=== PATIENT | female | born 1965 | race Caucasian/White ===

== ENCOUNTER → 2021-05-13 15:45 | Outpatient (CLI) | payer OTHER, BC, SELFPAY ==
--- NOTE | ~2021-05-13 | DEXA_ITS ---
Bone Density Report Name: ADRIANA HAMMOND Age: 56 Sex: Female Ethnicity: White Date of : 1965 Indication: postmenopausal; screening for osteoporosis; height loss; prior fracture; Referring Provider: Teresa Weems Study: Bone densitometry was performed. Exam Date: May 13, 2021 Accession number: [id number] Bone Density: Region BMD T-score Z-score Classification AP Spine (L1-L4) 0.938 -1.0 0.3 Normal Femoral Neck (Left) 0.597 -2.3 -1.1 Osteopenia Total Hip (Left) 0.694 -2.0 -1.2 Osteopenia World Health Organization criteria for BMD impression classify patients as: Normal (T-score at or above -1.0), Osteopenia (T-score between -1.0 and -2.5), or Osteoporosis (T-score at or below -2.5). 10-year Fracture Risk(1): Major Osteoporotic Fracture 17% Hip Fracture 3.0% Reported Risk Factors: [place] (), Neck BMD=0.597, BMI=45.2, previous fracture, alcohol use (1) FRAX(R) Version 3.08. Fracture probability calculated for an untreated patient. Fracture probability may be lower if the patient has received treatment. Clinical Information Provided by Patient: Has had a low trauma fracture Has 3 or more alcoholic drinks per day Has used the following medications: Calcium, VIT B 12, Mirena IUD Patient maximum height was 61.7 Menopause Age: 48 No regular weight bearing exercise Does not regularly consume dairy products Drinks caffeinated beverages Onset of menses at age 10 Number of children 2 Missed period for more than 6 months in a row Impression: The patient has low bone mass, based on the Left Femoral Neck T-score. The patient has an estimated ten-year risk of hip fracture of 3% and an estimated ten-year risk of major fracture of 17%, based on the WHO FRAX algorithm. The patient has risk factors, including: excessive alcohol use, previous fracture. Discussion: BONE DENSITY IS LOW AT ONE OR MORE SKELETAL SITES. THE PATIENT'S BMD AND CLINICAL RISK FACTORS CONTRIBUTE TO THIS PATIENT'S INCREASED RISK OF FRACTURE. This patient's lowest T-score is low at one or more skeletal sites. It meets the World Health Organization's (WHO) criteria for ?low bone mass? (T-score between -1.0 and -2.5). The patient's 10-year risk of hip fracture as calculated by FRAX exceeds the threshold where pharmacological therapy is recommended by the National Osteoporosis Foundation (NOF). However, all treatment decisions require clinical judgment and consideration of individual patient factors, including patient preferences, comorbidities, previous drug use, risk factors not captured in the FRAX model (e.g., frailty, falls, vitamin D deficiency, increased bone turnover, interval significant decline in bone density) and possible under or overestimation of fracture risk by FRAX. The patient should follow a healthful lifestyle (good nutrition with adequate calcium and
== END ==
DX: E03.9 Hypothyroidism, unspecified (principal); M85.89 Other specified disorders of bone density and structure, multiple sites
CPT/HCPCS: 77080

== ENCOUNTER 2021-10-12 00:27 | Emergency (ER) | payer OTHER, BC, SELFPAY ==
[2021-10-12] VITALS (8 sets, daily range): BP systolic 100–152; BP diastolic 61–92; PULSE 81–89; RESP 17–33; TEMP 36.5–36.8; O2SAT 96–100
--- NOTE | ~2021-10-12 | XR_ITS ---
EXAMINATION: XR hip RT 2V w AP pelvis INDICATION: Right hip pain TECHNIQUE: AP view of the pelvis and two views of the right hip are obtained. COMPARISON: None available FINDINGS: There are changes of right total hip arthroplasty. There is cranial dislocation of the femo ral component. No fracture is identified. The soft tissues are unremarkable. IMPRESSION: 1. Cranial dislocation of the femoral component of the hip arthroplasty. Reviewed, dictated and finalized at location A.
--- NOTE | ~2021-10-12 | XR_ITS ---
EXAMINATION: XR hip RT 1V INDICATION: Single AP view of the right hip is obtained. TECHNIQUE: Right hip dislocation post reduction COMPARISON: 0057 hours FINDINGS: The right hip dislocation has been reduced. Alignment is normal. There is no fracture. IMPRESSION: 1. Reduced hip dislocation. Reviewed, dictated and finalized at location A. IMPRESSION: 1. Reduced hip dislocation.
--- NOTE | 2021-10-12 01:20 | ED.FALL ---
HPI - Fall General Chief Complaint: Fall <Talisha Berry PA-C - Last Filed: 10/12/21 03:15> Stated Complaint: Fall <VIVI Costello Last Filed: 10/12/21 03:15> Time Seen by Provider: 10/12/21 01:03 <VIVI Costello Last Filed: 10/12/21 03:15> Source: patient <VIVI Costello Last Filed: 10/12/21 03:15> Mode of arrival: EMS <VIVI Costello Last Filed: 10/12/21 03:15> Limitations: no limitations <VIVI Costello Last Filed: 10/12/21 03:15> History of Present Illness HPI Narrative: This is a 56-year-old female that presents to the emergency department for right hip pain after a fall today. Reports she tripped and fell directly onto her right hip. She did not hit her head or lose consciousness. Reports since she has had pain and has not been able to ambulate. Reports history of hip replacement on this side with a doctor at [facility]. Denies vomiting, numbness, or weakness. <VIVI Costello Last Filed: 10/12/21 03:15> Related Data Home Medications: Home Medications Medication Instructions Recorded Confirmed calcium carbonate 600 mg-vitamin 1 tablet PO BID 09/08/19 09/22/21 D3 20 mcg (800 unit) tablet mecobalamin (vitamin B12) 5,000 mcg PO 09/08/19 09/22/21 mcg disintegrating tablet multivit with 1 tablet PO DAILY 09/08/19 09/22/21 zpauajxv-pifp-MA-lutein 8 mg iron-400 mcg-300 mcg tablet (Multivitamin Women 50 Plus) omega 5-ign-ypf-fish oil 900 cap PO 09/08/19 09/22/21 mg-1,400 mg capsule,delayed release (Fish Oil) soft lens rinse,store solution #360 mL 09/08/19 09/22/21 <VIVI Costello Last Filed: 10/12/21 03:15> Allergies/Adverse Reactions: Allergies Allergy/AdvReac Type Severity Reaction Status Date / Time cefuroxime Allergy Intermediate Unknown Verified 10/12/21 00:39 codeine Allergy Unknown Nausea Verified 10/12/21 00:39 hydrocodone Allergy Unknown Itching Verified 10/12/21 00:39 ibuprofen Allergy Unknown Unknown Verified 10/12/21 00:39 tetracycline Allergy Unknown Unknown Verified 10/12/21 00:39 <Talisha Berry PA-C - Last Filed: 10/12/21 03:15> Review of Systems Review of Systems: CONSTITUTIONAL: Denies fever EYES: Denies visual changes GASTROINTESTINAL: Denies vomiting MUSCULOSKELETAL: Reports joint pain, and myalgia. NEUROLOGIC: Denies numbness, or weakness. <Talisha Berry PA-C - Last Filed: 10/12/21 03:15> All systems reviewed & are unremarkable except as noted in HPI and below <Talisha Berry PA-C - Last Filed: 10/12/21 03:15> [facility] Past Medical History Medical History: Medical History (Updated 10/12/21 @ 02:58 by Talisha Berry PA-C) Alcohol abuse B12 deficiency Depression Essential (primary) hypertension Family history of hyperparathyroidism mother Hyperlipidemia Hypothyroid Insomnia <Talisha Berry PA-C - Last Filed: 10/12/21 03:15> Surgical History Surgical History: Surgical History (Updated 09/22/21 @ 16:00 by Sara Egan NP) History of breast augmentation (~1987) History of cholecystectomy (~05/2016) History of dental surgery (~07/2021) History of gastric bypass (~03/2003) History of hernia repair (~05/2016) History of inguinal hernia repair (~2005) History of repair of rotator cuff (~2004) Right History of right hip replacement (~06/2018) History of sinus surgery (~1997) History of toe surgery (~2015) RT 5th toe History of tonsillectomy (~1966) History of total bilateral knee replacement (TKR) <Talisha Berry PA-C - Last Filed: 10/12/21 03:15> Family History Family History: Family History (Updated 03/24/21 @ 16:55 by Sara Egan NP) Mother Asthma Hyperparathyroidism Grandparent Family history of alcoholism Family history of condition Carcinoma of colon Family history of lung cancer Father Malignant neoplasm of prostate Other Family history of throat cancer <Talisha Berry PA-C -
[2021-10-12 01:38] LABS: Basophils Percent Auto 0.4 % (0.2-1.2); Eosinophils Percent Auto 0.2 % (0-4.4); Hematocrit 41.2 % (37.0-47.0); Hemoglobin 13.8 g/dL (12.0-15.0); Immature Granulocyte Absolute 0.02 K/mm3 (0.00-0.031); Immature Granulocyte Percent A 0.4 % (0-0.5); Lymphocytes Absolute Auto 0.74 K/mm3 (0.9-3.2); Lymphocytes Percent Auto 13.4 % (18.3-44.2); Mean Corpuscular HGB Conc 33.5 g/dl (32-36); Mean Corpuscular Hemoglobin 31.7 pg (26-34); Mean Corpuscular Volume 94.7 fl (80-100); Mean Platelet Volume 9.3 fl (7.4-10.4); Monocytes Absolute Auto 0.2 K/mm3 (0.1-0.6); Neutrophils Absolute Auto 4.5 K/mm3 (1.3-6.7); Neutrophils Percent Auto 81.6 % (45.5-73.1); Platelet Count Result 233 k/mm3 (150-375); Red Blood Count 4.35 M/mm3 (4.2-5.4); Red Cell Distribution Width 12.9 % (11.5-14.5); White Blood Count 5.5 K/mm3 (4.5-10.0)
[2021-10-12 01:49] LABS: Ethanol 158 mg/dL (<10)
[2021-10-12 01:50] LABS: Alanine Aminotransferase 15 U/L (6-35); Albumin Level 4.5 g/dL (3.5-5.1); Alkaline Phosphatase 96 U/L (38-126); Anion Gap 13 mmol/L (8-16); Aspartate Amino Transferase 27 U/L (14-36); Bilirubin,Total 0.4 mg/dL (0.2-1.3); Blood Urea Nitrogen 10 mg/dL (7-17); Calcium 8.6 mg/dL (8.4-10.2); Carbon Dioxide 23 mmol/L (22-30); Chloride 96 mmol/L (98-107); Creatine Kinase 155 U/L (30-135); Estimated CRCL calculation 72 ml/min; Estimated Glomerular Filt Rate > 60; Glucose 133 mg/dL (65-110); Potassium 3.8 mmol/L (3.4-5.0); Sodium 132 mmol/L (137-145)
[2021-10-12] MEDS: fentaNYL CITRATE INJ (*CRX) 100 MCG/2 ML VIAL (02:09)
[2021-10-12] MEDS: SODIUM CHLORIDE 0.9% IV 1,000 ML 1000 ML (02:10)
--- NOTE | 2021-10-12 02:11 | PC.NURSE ---
EDP at bedside for right hip dislocation sedation. Consent obtained prior to moderate sedation start Propofol 100mg given by Dr. Choudhary 0216
--- NOTE | 2021-10-12 02:15 | PC.NURSE ---
50mg propofol given by Dr. Choudhary
--- NOTE | 2021-10-12 02:19 | PC.NURSE ---
50mg propofol given by Dr. Choudhary after second x-ray complete and hip not in place.
--- NOTE | 2021-10-12 02:20 | PC.NURSE ---
50mg propofol given by Dr. Choudhary.
--- NOTE | 2021-10-12 02:22 | PC.NURSE ---
x-ray compete, confirming that hip is back in correct location
== END 2021-10-12 03:23 | disposition home or self-care (01) ==
PROVIDERS: Physician Assistant; Emergency Provider Emergency Medicine; PCP Family Medicine
DX: T84.020A Dislocation of internal right hip prosthesis, initial encounter (principal); I10 Essential (primary) hypertension; E78.5 Hyperlipidemia, unspecified; E03.9 Hypothyroidism, unspecified; E53.8 Deficiency of other specified B group vitamins; Z98.84 Bariatric surgery status; Z96.641 Presence of right artificial hip joint; Z96.653 Presence of artificial knee joint, bilateral; W01.0XXA Fall on same level from slipping, tripping and stumbling without subsequent striking against object, initial encounter; Y79.2 Prosthetic and other implants, materials and accessory orthopedic devices associated with adverse incidents
CPT/HCPCS: 27266; 36415; 73501; 73502; 80053; 80307; 82550; 85025; 96374; 99285; J2704; J3010; J7030

== ENCOUNTER 2022-11-24 08:05 | Emergency (ER) | payer BC, SELFPAY ==
[2022-11-24] VITALS (12 sets, daily range): BP systolic 90–140; BP diastolic 48–79; PULSE 87–108; RESP 13–22; TEMP 36.7; O2SAT 88–100
--- NOTE | ~2022-11-24 | XR_ITS ---
XR hip RT 1V 11/24/2022 09:54 Indication: Post reduction right hip dislocation Procedure: AP view of the right hip Comparison: 02/24/2022 Findings: There is a right total hip arthroplasty with superior lateral dislocation of the femoral co mponent. No evidence for periprosthetic fracture. Surrounding osseous structures are unremarkable. No soft tissue abnormality. Impression: 1: Stable alignment of dislocated right total hip arthroplasty. Reviewed, dictated and finalized at location L. Impression: 1: Stable alignment of dislocated right total hip arthroplasty.
--- NOTE | ~2022-11-24 | XR_ITS ---
EXAMINATION: XR hip RT 2V w AP pelvis DATE: 11/24/2022 09:01 INDICATION: Right hip dislocation. Fall. TECHNIQUE: An anteroposterior view of the pelvis and 2 views of right hip were obtained. COMPARISON: Right hip radiograph 10/12/2021 FINDINGS: There is a total right hip arthroplasty. There is lateral and proximal dislocation of the f emoral component with respect to the acetabular component. No fracture. No periprosthetic lucency to suggest loosening or infection. Left hip joint space is normal. IMPRESSION: 1. Dislocated total right hip arthroplasty. Reviewed, dictated and finalized at location A.
--- NOTE | ~2022-11-24 | XR_ITS ---
XR hip RT min 2V 11/24/2022 09:58 Indication: Right hip reduction Procedure: 2 views right hip Comparison: 11/24/2022 Findings: Interval reduction of right hip arthroplasty, now in anatomic alignment. Prosthesis well se ated. No underlying fracture. No soft tissue abnormality. Impression: 1: Normal alignment of right total hip arthroplasty post reduction. Reviewed, dictated and finalized at location L. Impression: 1: Normal alignment of right total hip arthroplasty post reduction.
--- NOTE | 2022-11-24 09:20 | ED.GENADULT ---
HPI - General Adult General Chief complaint: Unspecified <Boris Jimenes PA-C - Last Filed: 11/24/22 13:09> Stated complaint: right hip dislocation <Boris Jimenes PA-C - Last Filed: 11/24/22 13:09> Time Seen by Provider: 11/24/22 08:17 <Boris Jimenes PA-C - Last Filed: 11/24/22 13:09> Source: patient <Boris Jimenes PA-C - Last Filed: 11/24/22 13:09> Mode of arrival: EMS <Boris Jimenes PA-C - Last Filed: 11/24/22 13:09> Limitations: no limitations <Boris Jimenes PA-C - Last Filed: 11/24/22 13:09> History of Present Illness HPI narrative: This is a 57-year-old female who presents to the ED with chief complaint of a right hip injury that occurred yesterday evening. That she was trying to clean the bathroom when this happened. Reports that she had 2 different drinks of vodka and lemonade and does not remember anything since. She does not remember the injury. She states she had the drinks around 4:30 in the afternoon. Denies any further site of pain or injury. is with her and reports that he found her on the ground when he was going to bed around midnight. States he was going to call the ambulance but patient did not want this. Reports that she wanted to just lay on the ground. Reports that she woke up around 0630 and they called the ambulance. Patient reports that the right hip was replaced 4 years ago with a doctor at [facility]. Per triage note she was given 8 mg of morphine in route from EMS. <Boris Jimenes PA-C - Last Filed: 11/24/22 13:09> Related Data Home medications: Home Medications Medication Instructions Recorded Confirmed calcium carbonate 600 mg-vitamin 1 tablet PO BID 09/08/19 09/28/22 D3 20 mcg (800 unit) tablet fopigoak-fgah-kift 8 mg-folic 400 1 tablet PO DAILY 09/08/19 09/28/22 mcg-K 50 mcg-lutein 300 mcg tablet (Multivitamin Women 50 Plus) soft lens rinse,store solution #360 mL 09/08/19 04/28/22 mecobalamin (vitamin B12) 5,000 mcg PO .QD 03/24/22 09/28/22 mcg disintegrating tablet omega 7-fec-twh-fish oil 900 cap PO .QD 03/24/22 09/28/22 mg-1,400 mg capsule,delayed release (Fish Oil) <Boris Jimenes PA-C - Last Filed: 11/24/22 13:09> Allergies/adverse reactions: Allergies Allergy/AdvReac Type Severity Reaction Status Date / Time cefuroxime Allergy Intermediate Unknown Verified 11/24/22 08:16 hydrocodone Allergy Unknown Itching Verified 11/24/22 08:16 ibuprofen Allergy Unknown Unknown Verified 11/24/22 08:16 tetracycline Allergy Unknown Unknown Verified 11/24/22 08:16 codeine AdvReac Unknown Nausea Verified 11/24/22 09:32 <Boris Jimenes PA-C - Last Filed: 11/24/22 13:09> Review of Systems Review of Systems: All systems as dictated in HPI <Boris Jimenes PA-C - Last Filed: 11/24/22 13:09> [facility] Past Medical History Medical History: Medical History (Updated 11/25/22 @ 00:00 by Coleen rFiend) Alcohol abuse B12 deficiency Depression Essential (primary) hypertension Family history of hyperparathyroidism mother Hyperlipidemia Hypotension Hypothyroid Insomnia <VIVI Corley Last Filed: 11/24/22 13:09> Surgical History Surgical History: Surgical History History of breast augmentation (~1987) History of cholecystectomy (~05/2016) History of dental surgery (~07/2021) History of gastric bypass (~03/2003) History of hernia repair (~05/2016) History of inguinal hernia repair (~2005) History of repair of rotator cuff (~2004) Right History of right hip replacement (~06/2018) History of sinus surgery (~1997) History of toe surgery (~2015) RT 5th toe History of tonsillectomy (~1966) History of total bilateral knee replacement (TKR) <VIVI Corley Last Filed: 11/24/22 13:09> Family History Family History: Family History (Updated 09/28/22 @ 16:05 by Leila Bonner) Mother Asthma Hyperparathyroidism Suzanne
[2022-11-24] MEDS: SODIUM CHLORIDE 0.9% IV 1,000 ML 1000 ML (09:40)
--- NOTE | 2022-11-24 11:04 | PC.NURSE ---
0941: 100mg propofol administered by EDP 0942: 50mg propofol administered by EDP 0950: 100 mg propofol administered by EDP Dr. Bradley 0952: 50mg propofol administered by EDP
== END 2022-11-24 12:00 | disposition home or self-care (01) ==
PROVIDERS: Emergency Provider Physician Assistant; PCP Nurse Practitioner Family
DX: T84.020A Dislocation of internal right hip prosthesis, initial encounter (principal); F32.A Depression, unspecified; I10 Essential (primary) hypertension; E03.9 Hypothyroidism, unspecified; X58.XXXA Exposure to other specified factors, initial encounter
CPT/HCPCS: 27265; 73501; 73502; 99285; J2704; J7030

== ENCOUNTER 2023-03-31 09:48 | Emergency (ER) | payer BC, SELFPAY ==
[2023-03-31] VITALS (9 sets, daily range): BP systolic 94–132; BP diastolic 52–82; PULSE 72–93; RESP 13–18; TEMP 36.7–36.9; O2SAT 94–100
--- NOTE | ~2023-03-31 | XR_ITS ---
EXAMINATION: XR hip RT 1V DATE: 03/31/2023 11:06 INDICATION: Right hip dislocation status post reduction. TECHNIQUE: A single view of right hip was obtained. COMPARISON: Radiographs at 10:03 AM FINDINGS: There is a total right hip arthroplasty in near-anatomic alignment. No periprosthetic lucen cy to suggest loosening or infection. No fracture. IMPRESSION: 1. Total right hip arthroplasty in near-anatomic alignment. Reviewed, dictated and finalized at location A. DESIGNER
--- NOTE | ~2023-03-31 | XR_ITS ---
EXAMINATION: XR hip RT 2V w AP pelvis DATE: 03/31/2023 10:21 INDICATION: Right hip dislocation. TECHNIQUE: An anteroposterior view of the pelvis and 2 views of right hip were obtained. COMPARISON: Right hip radiographs 11/24/2022 FINDINGS: There is a total right hip arthroplasty. There is lateral and proximal dislocation of the f emoral component with respect to the acetabular component. No fracture. No periprosthetic lucency to suggest loosening or infection. There is mild left hip osteoarthritis. IMPRESSION: 1. Dislocated total right hip arthroplasty. Reviewed, dictated and finalized at location A. BINDER CHIEF
--- NOTE | 2023-03-31 10:04 | PC.NURSE ---
consent signed and in chart
[2023-03-31] MEDS: SODIUM CHLORIDE 0.9% IV 1,000 ML 999 ML IV CONT (10:37)
[2023-03-31] MEDS: PROPOFOL IV EMULSION 200 MG/20 ML VIAL 150 MG IV PUSH (10:49)
--- NOTE | 2023-03-31 10:49 | PC.NURSE ---
150mg Etomidate pushed by EDP Dr Rolon at bedside
--- NOTE | 2023-03-31 10:54 | ED.LOWEXIN ---
HPI - Extremity Injury (Lower) General Chief Complaint: Extremity Injury, Lower Stated Complaint: Dislocated hip Time Seen by Provider: 03/31/23 09:54 History of Present Illness HPI Narrative: Patient is a 57-year-old female who presents ER with concerns for hip dislocation. Reports she had been up drinking vodka and water last night and went to bed. When she woke up this morning her hip hurt her. At some point she is able to get herself to the bathroom but was difficult ambulate. To the pain she decided come to the ER. She reports hip dislocation x2 and she thinks the same things occurring. Her right leg is shortened. She has no numbness or tingling. Denies any other pain or potential injury. Related Data Home Medications Medication Instructions Recorded Confirmed calcium carbonate 600 mg-vitamin 1 tablet PO BID 09/08/19 09/28/22 D3 20 mcg (800 unit) tablet eduquztj-amao-zpmn 8 mg-folic 400 1 tablet PO DAILY 09/08/19 09/28/22 mcg-K 50 mcg-lutein 300 mcg tablet (Multivitamin Women 50 Plus) soft lens rinse,store solution #360 mL 09/08/19 04/28/22 mecobalamin (vitamin B12) 5,000 mcg PO .QD 03/24/22 09/28/22 mcg disintegrating tablet omega 2-ien-rnx-fish oil 900 cap PO .QD 03/24/22 09/28/22 mg-1,400 mg capsule,delayed release (Fish Oil) Allergies Allergy/AdvReac Type Severity Reaction Status Date / Time cefuroxime Allergy Intermediate Unknown Verified 11/24/22 08:16 hydrocodone Allergy Unknown Itching Verified 11/24/22 08:16 ibuprofen Allergy Unknown Unknown Verified 11/24/22 08:16 tetracycline Allergy Unknown Unknown Verified 11/24/22 08:16 codeine AdvReac Unknown Nausea Verified 11/24/22 09:32 Review of Systems Review of Systems: All systems reviewed & are unremarkable except as noted in HPI and below Constitutional: Constitutional: Reports no additional constitutional complaints ENT: Reports system reviewed and no additional complaints, except as documented Cardiovascular: Cardiovascular: Reports no additional cardiovascular complaints Respiratory: Respiratory: Reports no additional respiratory complaints Musculoskeletal: Musculoskeletal: Denies back pain, Reports arthralgias, Denies joint swelling and Denies muscle cramps Neurologic: Reports system reviewed and no additional complaints, except as documented [facility] Past Medical History Medical History (Updated 03/31/23 @ 10:57 by Hayder Rolon MD) Alcohol abuse B12 deficiency Depression Essential (primary) hypertension Family history of hyperparathyroidism mother Hyperlipidemia Hypotension Hypothyroid Insomnia Surgical History Surgical History History of breast augmentation (~1987) History of cholecystectomy (~05/2016) History of dental surgery (~07/2021) History of gastric bypass (~03/2003) History of hernia repair (~05/2016) History of inguinal hernia repair (~2005) History of repair of rotator cuff (~2004) Right History of right hip replacement (~06/2018) History of sinus surgery (~1997) History of toe surgery (~2015) RT 5th toe History of tonsillectomy (~1966) History of total bilateral knee replacement (TKR) Family History Family History (Updated 09/28/22 @ 16:05 by Leila Bonner) Mother Asthma Hyperparathyroidism Lung cancer Grandparent Family history of alcoholism Family history of condition Carcinoma of colon Family history of lung cancer Father Malignant neoplasm of prostate Other Family history of throat cancer Social History Social History (Updated 09/28/22 @ 16:06 by Leila Bonner) Social History: Lives with and 2 children. Caffeine- occasionally Smoking status: Never smoker Alcohol intake: current Drinks per week: 7 Alcohol use details: wine Substance use: never Substance use type: does not use Lack of Transportation: No Lack of Food: Never True Current Housing: I Have Housing Concerned
--- NOTE | 2023-03-31 11:07 | PC.NURSE ---
assumed care of pt. pt resting on stretcher, in pain in right hip. pt alert, answering questions. no other distress noted. pt informed we just finished x-rays on hip. pt asking for pain medication, edp aware.
== END 2023-03-31 15:25 | disposition home or self-care (01) ==
PROVIDERS: Emergency Provider Emergency Medicine; PCP Nurse Practitioner Family
DX: T84.020A Dislocation of internal right hip prosthesis, initial encounter (principal); I10 Essential (primary) hypertension; E03.9 Hypothyroidism, unspecified; E53.8 Deficiency of other specified B group vitamins; E78.5 Hyperlipidemia, unspecified; Z96.641 Presence of right artificial hip joint; Z96.653 Presence of artificial knee joint, bilateral; Z90.49 Acquired absence of other specified parts of digestive tract; Z98.84 Bariatric surgery status; Y79.2 Prosthetic and other implants, materials and accessory orthopedic devices associated with adverse incidents
CPT/HCPCS: 27265; 73501; 73502; 99285; J2704; J7030

== ENCOUNTER 2024-07-28 10:30 | Outpatient (RCR) | payer BC, SELFPAY ==
--- NOTE | 2024-06-15 16:35 | OPREHPOC ---
Outpatient Therapy Plan of Care This is a Multidisciplinary Plan of Care that may contain components documented by all disciplines (PT, OT, and ST.) PT Problem 1 PT Problem #1 Knowledge Deficit PT Goal 1 Goal / Goal Update *independent with HEP Target Visit 10 PT Problem 2 PT Problem #2 Pain PT Goal 1 Goal / Goal Update * pt report pain in R hip at worst of 04/24 Target Visit 10 PT Problem 3 PT Problem #3 Impaired Strength PT Goal 1 Goal / Goal Update 1*increase strength of R hip to gross 4/5 2* sit/stand without use of UE's from 18 seat x 5 reps Target Visit 10 PT Problem 4 PT Problem #4 Impaired Functional Mobility PT Goal 1 Goal / Goal Update 1* 2 minute walking test distance with cane, 400' 2* pt report walking in community with cane 3* pt up/down 12 steps with one hand railing, independent Target Visit 10
--- NOTE | 2024-06-15 16:35 | PTOPEVAL1 ---
Assessment and note entered by Jaclyn Lopez, PT Evaluation Information Assessment Status Evaluation Diagnosis s/p revision of R THR 03-29-24 ICD-10 Condition Codes (PT) Weakness R53.1,Encounter for other orthopedic aftercare Z47.89 Onset 04-09-24 Subjective Information pt had revision of R THR on 03-29-14; has posterior hip precautions x 12 weeks activity: not working outside of home; stay on main level of home, 2 entry steps; have basement with 1 hand railing- occasionally go down; using the wheeled walker when going out of the house and sometimes in home with more pain in hip; at home, have not been doing any house work due to fear of dislocation again; have not been doing any leg exercises due to hernia pain independent with showering and dressing at home have recumbent bicycle- not used yet; have outdoor pool- will be opening it up soon- want to do aquatic exercises here Reported Pain Level Pain Score Self Report Additional Pain Score Comments pain range in the past week 0-5/10; lateral hip also have pain due to R lower abdominal hernia--- hernia limits her walking/activity to about 10 minutes use wheeled walker most of the time reported no awakening from sleeping, due to hip pain does not lie on her R side- uncomfortable Assessment PT Clinical Summary Ruth is s/p revision of R THR on 03-29-24. She had had 4 dislocations of THR and voiced fear of dislocation again. Also reports a hernia over R lower abdomen that she has an appointment with a surgeon next week. Her history includes L TKR. She has been using a wheeled walker and not been doing any exercises due to her hernia being irritated with more activity. With the evaluation: she has weakness over R hip; ambulates with a wheeled walker, for 2 minute walking test distance of 335'; gait pattern with Trendelenburg pattern; Skilled PT services are indicated for aquatic and land exercises to increase R hip strength and mobility skills, modalities PRN for pain control, with gait training to progress to cane and no device, and HEP. Plan of Care Interventions Aquatic Therapy,Electrical Stimulation,Gait Training,Hot Pack/Cold Pack,Manual Therapy,Neuro Re-education,Patient/Caregiver Education, Therapeutic Activities,Therapeutic Exercise, Ultrasound Other Interventions taping PT Services Indicated Yes Treatment Frequency and 1-2x/wk for 10 visits Duration These treatments will address the objective and functional deficits as defined above. The patient will be advanced safely and appropriately in order for the patient to progress towards his/her prior level of function. Additional exercises will be introduced and as well as a comprehensive home exercise program upon discharge, if needed, ?to ensure carryover of functional gains achieved in the clinic. This treatment plan has been reviewed and agreement upon by the patient.
--- NOTE | 2024-09-08 10:43 | OPREHPOC ---
Outpatient Therapy Plan of Care This is a Multidisciplinary Plan of Care that may contain components documented by all disciplines (PT, OT, and ST.) PT Problem 1 PT Problem #1 Knowledge Deficit PT Goal 1 Goal / Goal Update *independent with HEP 09-08-24 d/c pt call/canceled therapy goals not addressed Target Visit 10 PT Problem 2 PT Problem #2 Pain PT Goal 1 Goal / Goal Update * pt report pain in R hip at worst of 04/24 09-08-24 d/c pt call/canceled therapy goals not addressed Target Visit 10 PT Problem 3 PT Problem #3 Impaired Strength PT Goal 1 Goal / Goal Update 1*increase strength of R hip to gross 4/5 2* sit/stand without use of UE's from 18 seat x 5 reps 09-08-24 d/c pt call/canceled therapy goals not addressed Target Visit 10 PT Problem 4 PT Problem #4 Impaired Functional Mobility PT Goal 1 Goal / Goal Update 1* 2 minute walking test distance with cane, 400' 2* pt report walking in community with cane 3* pt up/down 12 steps with one hand railing, independent 09-08-24 d/c pt call/canceled therapy goals not addressed Target Visit 10
--- NOTE | 2024-09-08 10:43 | PTOPDC ---
Assessment and note entered by Jaclyn Lopez, PT Assessment Status Discharge - Pt Not Present Diagnosis s/p revision of R THR 03-29-24 ICD-10 Condition Codes (PT) Weakness R53.1,Encounter for other orthopedic aftercare Z47.89 Onset 04-09-24 Subjective Information pt called on 08-21-24 and canceled PT treatment. Assessment PT Clinical Summary Ruth has received 9 PT sessions, from June 15 to July 28. She then called and canceled her therapy. Discharge PT. The goals were not addressed. Plan of Care PT Services Indicated No
== END 2024-09-08 13:55 | disposition home or self-care (01) ==
LOC: ANHPT 10:30
PROVIDERS: PCP Nurse Practitioner Family
DX: Z47.89 Encounter for other orthopedic aftercare (principal); R53.1 Weakness; M25.551 Pain in right hip; Z96.641 Presence of right artificial hip joint
CPT/HCPCS: 97110; 97113; 97116; 97161; 97530

== ENCOUNTER 2024-07-28 15:50 | Outpatient (CLI) | payer BC, SELFPAY ==
--- NOTE | ~2024-07-28 | CT_ITS ---
Non-contrast CT scan of the Abdomen and Pelvis Clinical indication: Inguinal hernia Technique: 2.5 mm axial scans were obtained through the abdomen and pelvis without intravenous or or al contrast. Dose reduction technique was used on this scan by utilizing automated exposure control a nd iterative reconstruction technique. The dose-length product (DLP) was 856.31 mGy-cm. Findings: Images through the lung bases reveal small hiatal hernia. There is no evidence of renal or ureteral calculi. The kidneys and the ureters are nondilated. The liver, spleen, pancreas, and adrenals appear normal. Cholecystectomy clips are present. There is no aortic aneurysm. There is no evidence of bowel obstruction. Images through the pelvis are degraded by streak artifact from right hip arthroplasty. Urinary bladde r grossly unremarkable. No definite pelvic mass seen. Fat-containing right inguinal hernia present. N o ascites. Impression: Fat-containing right inguinal hernia. Reviewed, dictated and finalized at location . Impression: Fat-containing right inguinal hernia.
== END 2024-07-28 15:51 | disposition home or self-care (01) ==
LOC: MICIMG 15:51
PROVIDERS: PCP Nurse Practitioner Family; Visit Provider Nurse Practitioner Family
DX: K40.90 Unilateral inguinal hernia, without obstruction or gangrene, not specified as recurrent (principal)
CPT/HCPCS: 74176

== ENCOUNTER 2024-07-31 15:16 | Outpatient (CLI) | payer BC, SELFPAY ==
--- NOTE | ~2024-07-31 | DEXA_ITS ---
Bone Density Report Name: ADRIANA HAMMOND Age: 59 Sex: Female Ethnicity: White Date of : 1965 Indication: osteopenia; parental hip fracture; height loss; Referring Provider: Sara Egan Study: Bone densitometry was performed. Exam Date: July 31, 2024 Accession number: [id number] Bone Density: Region BMD T-score Z-score Classification AP Spine(L1-L4) 0.881 -1.5 0.0 Osteopenia Femoral Neck (Left) 0.508 -3.1 -1.7 Osteoporosis Total Hip (Left) 0.638 -2.5 -1.5 Osteoporosis World Health Organization criteria for BMD impression classify patients as: Normal (T-score at or above -1.0), Osteopenia (T-score between -1.0 and -2.5), or Osteoporosis (T-score at or below -2.5). 10-year Fracture Risk: FRAX not reported because: Some T-score for Spine Total or Hip Total or Femoral Neck at or below -2.5 Previous Exams: -- Region Exam Age BMD T-score BMD Change BMD Change Date g/cm2 vs Baseline vs Previous -- AP Spine (L1-L4) 07/31/2024 59 0.881 -1.5 -6.0%# -6.0%05/13/2021 56 0.938 -1.0 Total Hip(Left) 07/31/2024 59 0.638 -2.5 -8.0%# -8.0%# 05/13/2021 56 0.694 -2.0 -- *Denotes significance at 95% confidence level, LSC for AP Spine = 0.022 g/cm2, LSC for Total Hip = 0.027 g/cm2 # Denotes dissimilar scan types or analysis methods Clinical Information Provided by Patient: Parent has had a hip fracture Has used the following medications: Vitamin D, Calcium Patient maximum height was 62 Menopause Age: 48 No regular weight bearing exercise Drinks caffeinated beverages Onset of menses at age 10 Number of children 2 Impression: The patient has osteoporosis, based on the Left Femoral Neck T-score. The patient has risk factors, including: parental hip fracture. Unable to evaluate interval change due to the use of different scan modes. Discussion: INCREASED RISK OF FRACTURE. BONE DENSITY IS UNDESIRABLY LOW AT ONE OR MORE SKELETAL SITES, CONSISTENT WITH POSTMENOPAUSAL OSTEOPOROSIS. This patient's lowest T-score meets the World Health Organization's (WHO) criteria for osteoporosis at one or more sites (T-score -2.5 or below). In untreated patients, the risk of osteoporotic fracture increases approximately two-fold for each 1.0 SD decrease in T-score. Low bone density is not the only risk factor for fracture; also consider factors such as patient's age, frailty or poor health, risk of falling, risk of injury, previous osteoporotic fracture, family history of osteoporosis, cigarette smoking, low body weight, etc. Not everyone with low bone mineral density has osteoporosis; osteomalacia and other metabolic bone disorders should also be considered. Patients who have osteoporosis should be evaluated for specific diseases and conditions (secondary causes) that may cause or contribute to bone loss. The [place] [employer] (AACE) and National Osteoporosis Foundation (NOF) recommend pharmacologic intervention for all postmenopausal women whose T-score is in this range. The patient should follow a healthful lifestyle (good nutrition with adequate calcium and vitamin D, and appropriate weight-bearing exercise). Follow-Up: Consider a repeat BMD and Vertebral Fracture Assessment (VFA) exam in 2 years or sooner if medically necessary, to reassess this patient's status. Reported by: BLAZE on 07/31/2024 3:33:00 PM. Reviewed, dictated and finalized at location A.
== END 2024-07-31 15:17 | disposition home or self-care (01) ==
LOC: MICIMG 15:17
PROVIDERS: PCP Nurse Practitioner Family; Visit Provider Nurse Practitioner Family
DX: M81.0 Age-related osteoporosis without current pathological fracture (principal); M85.88 Other specified disorders of bone density and structure, other site; Z78.0 Asymptomatic menopausal state
CPT/HCPCS: 77080